=== PATIENT | male | born 1960 | race Two or more races ===

== ENCOUNTER 2023-05-29 23:00 | Inpatient (IN) | payer MEDICAID, OTHER ==
[~2023-05-29] VITALS: Ht 188 cm; Wt 121.0 kg
[2023-05-29] MEDS ORDERED: ALBUTEROL MEDNEB 2.5 mg/3ml NEB NEB ONE (23:15)
[2023-05-29] MEDS ORDERED: IPRATROPIUM BROM 0.5 MG/2.5ML INH SOL NEB ONE (23:15)
[2023-05-29 23:28] LABS: Basophils # (auto) 0.1 10 ^3/uL (0-0.2); Basophils % (auto) 0.8 % (0.0-2.0); Eosinophils # (auto) 0.4 10 ^3/uL (0-0.8); Eosinophils % (auto) 4.5 % (0.0-7.0); Hematocrit 49.1 % (41.0-53.0); Hemoglobin 16.7 g/dL (13.5-17.5); Lymphocytes # (auto) 1.7 10 ^3/uL (0.4-5.4); Lymphocytes % (auto) 20.2 % (10.0-50.0); Mean Corpuscular Hemoglobin 32.8 pg (28.0-32.0); Mean Corpuscular Hgb Conc. 33.9 g/dL (32.0-36.0); Mean Corpuscular Volume 96.7 fL (80.0-100.0); Monocytes # (auto) 0.8 10 ^3/uL (0-1.3); Monocytes % (auto) 9.4 % (0.0-12.0); Neutrophils # (auto) 5.5 10 ^3/uL (1.6-8.6); Neutrophils % (auto) 65.1 % (37.0-80.0); Red Blood Cells 5.08 10^6/uL (4.5-5.90); Red Cell Distribution Width 13.3 % (11.8-14.3); White Blood Cell 8.4 10^3/uL (4.4-10.8)
[2023-05-29 23:41] LABS: Alanine Aminotransferase 42 U/L (7-40); Albumin 4.5 g/dL (3.2-4.8); Alkaline Phosphatase 72 U/L (46-116); Anion Gap 6 (5-15); Aspartate Aminotransferase 22 U/L (13-40); BUN/Creatinine Ratio 9.3 (10.0-20.0); Bilirubin, Total 0.8 mg/dL (0.2-1.0); Blood Urea Nitrogen 8 mg/dL (9-23); Calcium 8.9 mg/dL (8.7-10.4); Carbon Dioxide 30 mmol/L (20-30); Chloride 100 mmol/L (98-107); Glucose 112 mg/dL (74-106); INR 1.05 (0.9-1.15); Magnesium 2.2 mg/dL (1.6-2.6); Partial Thromboplastin Time 25.9 SEC (24.5-34.5); Potassium 3.8 mmol/L (3.5-5.1); Sodium 136 mmol/L (136-145); Total Protein 7.3 g/dL (5.7-8.2)
[2023-05-30] VITALS (7 sets, daily range): BP systolic 147; BP diastolic 89; PULSE 84–91; RESP 14–20; TEMP 97.9; O2SAT 90–97
[2023-05-30] MEDS ORDERED: HYDROcodone-ACET 5/325MG TAB PO ONE
[2023-05-30] MEDS ORDERED: NITROGLYCERIN 2% OINT 1GM PKG TD STA (01:55)
[2023-05-30] MEDS ORDERED: methylPREDNISolone SOD SUCC 125 MG/2 ML VL IV ONE (02:00)
[2023-05-30] MEDS ORDERED: FUROSEMIDE 20 MG/2 ML VIAL IV ONE (02:00)
[2023-05-30] MEDS ORDERED: ALBUTEROL MEDNEB 2.5 mg/3ml NEB NEB ONE (02:00)
[2023-05-30] MEDS ORDERED: ASPirin 81 mg TAB PO ONE ×2 (02:00)
[2023-05-30] MEDS ORDERED: IPRATROPIUM BROM 0.5 MG/2.5ML INH SOL NEB ONE (02:00)
[2023-05-30] MEDS ORDERED: MORPHINE SULFATE INJ 2 MG/ml SYRG IV PRN ×2 (05:15)
[2023-05-30] MEDS ORDERED: DOCUSATE SOD 100 MG CAP PO PRN (05:15)
[2023-05-30] MEDS ORDERED: ACETAMINOPHEN 325 MG TAB PO PRN (05:15)
[2023-05-30] MEDS ORDERED: NITROGLYCERIN 0.4 MG SL TAB SL PRN (05:15)
[2023-05-30] MEDS ORDERED: ONDANSETRON HCL 4 MG/2 ML VIAL IV PRN (05:15)
[2023-05-30] MEDS: SODIUM CHLOR 0.9% PF (SALINE LOCK) 10ML VIAL/SYR IV SCH ×3 (06:02→22:31)
[2023-05-30 07:59] LABS: Basophils # (auto) 0 10 ^3/uL (0-0.2); Basophils % (auto) 0.4 % (0.0-2.0); Eosinophils # (auto) 0 10 ^3/uL (0-0.8); Eosinophils % (auto) 0.3 % (0.0-7.0); Hematocrit 49.7 % (41.0-53.0); Hemoglobin 16.5 g/dL (13.5-17.5); Lymphocytes # (auto) 0.7 10 ^3/uL (0.4-5.4); Lymphocytes % (auto) 10.7 % (10.0-50.0); Mean Corpuscular Hemoglobin 32.3 pg (28.0-32.0); Mean Corpuscular Hgb Conc. 33.3 g/dL (32.0-36.0); Monocytes # (auto) 0.1 10 ^3/uL (0-1.3); Monocytes % (auto) 0.9 % (0.0-12.0); Neutrophils # (auto) 5.5 10 ^3/uL (1.6-8.6); Neutrophils % (auto) 87.7 % (37.0-80.0); Nucleated Red Blood Cells % 0.1 %; Red Blood Cells 5.12 10^6/uL (4.5-5.90); White Blood Cell 6.2 10^3/uL (4.4-10.8)
[2023-05-30 08:20] LABS: Alanine Aminotransferase 45 U/L (7-40); Albumin 4.6 g/dL (3.2-4.8); Alkaline Phosphatase 69 U/L (46-116); Anion Gap 8 (5-15); Aspartate Aminotransferase 22 U/L (13-40); BUN/Creatinine Ratio 14.4 (10.0-20.0); Blood Urea Nitrogen 15 mg/dL (9-23); Calcium 9.7 mg/dL (8.5-10.1); Carbon Dioxide 29 mmol/L (20-30); Chloride 99 mmol/L (98-107); Glucose 203 mg/dL (74-106); Sodium 136 mmol/L (136-145)
[2023-05-30] MEDS ORDERED: ASPirin 81 mg TAB ONE (08:20)
[2023-05-30 08:21] LABS: Bilirubin, Total 0.8 mg/dL (0.2-1.0); Total Protein 7.2 g/dL (5.7-8.2)
[2023-05-30] MEDS: ASPirin 81 mg TAB PO SCH (08:22)
[2023-05-30] MEDS: HYDROcodone-ACET 5/325MG TAB PO PRN ×3 (08:22→22:31)
[2023-05-30] MEDS: ALBUTEROL MEDNEB 2.5 mg/3ml NEB NEB PRN ×2 (08:52→18:58)
[2023-05-30] MEDS: IPRATROPIUM BROM 0.5 MG/2.5ML INH SOL NEB PRN ×2 (08:52→18:58)
[2023-05-30] MEDS ORDERED: hydrALAZINE HCL 20 MG/ML VL IV PRN (09:45)
[2023-05-30] MEDS: hydroCHLOROthiazide 25 MG TAB PO SCH (16:50)
[2023-05-30] MEDS: ATORVASTATIN 20 MG TAB PO SCH (22:31)
[2023-05-30 23:21] LABS: COVID19 ANTIGEN SOFIA FIA NEGATIVE (NEGATIVE); Rapid Influenza A Negative (Negative); Rapid Influenza B Negative (Negative)
[2023-05-31] VITALS (17 sets, daily range): BP systolic 110–148; BP diastolic 77–98; PULSE 66–95; RESP 18–91; TEMP 36.7; O2SAT 18–99
[2023-05-31] MEDS: IPRATROPIUM BROM 0.5 MG/2.5ML INH SOL NEB PRN (03:05)
[2023-05-31] MEDS: ALBUTEROL MEDNEB 2.5 mg/3ml NEB NEB PRN (03:06)
[2023-05-31] MEDS: SODIUM CHLOR 0.9% PF (SALINE LOCK) 10ML VIAL/SYR IV SCH ×3 (06:29→21:20)
[2023-05-31 06:39] LABS: Basophils # (auto) 0 10 ^3/uL (0-0.2); Basophils % (auto) 0.2 % (0.0-2.0); Eosinophils # (auto) 0 10 ^3/uL (0-0.8); Eosinophils % (auto) 0.1 % (0.0-7.0); Hematocrit 44.9 % (41.0-53.0); Hemoglobin 14.9 g/dL (13.5-17.5); Lymphocytes # (auto) 1.6 10 ^3/uL (0.4-5.4); Lymphocytes % (auto) 9.4 % (10.0-50.0); Mean Corpuscular Hemoglobin 32.4 pg (28.0-32.0); Mean Corpuscular Hgb Conc. 33.1 g/dL (32.0-36.0); Mean Corpuscular Volume 97.7 fL (80.0-100.0); Monocytes # (auto) 1.3 10 ^3/uL (0-1.3); Monocytes % (auto) 7.6 % (0.0-12.0); Neutrophils # (auto) 14.4 10 ^3/uL (1.6-8.6); Neutrophils % (auto) 82.7 % (37.0-80.0); Red Blood Cells 4.59 10^6/uL (4.5-5.90); Red Cell Distribution Width 13.4 % (11.8-14.3); White Blood Cell 17.4 10^3/uL (4.4-10.8)
[2023-05-31 07:17] LABS: Alanine Aminotransferase 29 U/L (7-40); Alkaline Phosphatase 61 U/L (46-116); Anion Gap 4 (5-15); Aspartate Aminotransferase 13 U/L (13-40); BUN/Creatinine Ratio 16.7 (10.0-20.0); Blood Urea Nitrogen 15 mg/dL (9-23); Calcium 8.7 mg/dL (8.7-10.4); Carbon Dioxide 32 mmol/L (20-30); Chloride 100 mmol/L (98-107); Glucose 103 mg/dL (74-106); Potassium 3.6 mmol/L (3.5-5.1); Sodium 136 mmol/L (136-145)
[2023-05-31 07:18] LABS: Total Protein 6.5 g/dL (5.7-8.2)
[2023-05-31] MEDS: ALBUTEROL MEDNEB 2.5 mg/3ml NEB NEB SCH ×3 (07:36→18:30)
[2023-05-31] MEDS: IPRATROPIUM BROM 0.5 MG/2.5ML INH SOL NEB SCH ×3 (07:36→18:30)
[2023-05-31 08:34] LABS: Bilirubin, Total 0.5 mg/dL (0.2-1.0)
[2023-05-31] MEDS: HYDROcodone-ACET 5/325MG TAB PO PRN (09:46)
[2023-05-31] MEDS: ASPirin 81 mg TAB PO SCH (09:46)
[2023-05-31] MEDS: hydroCHLOROthiazide 25 MG TAB PO SCH (09:53)
[2023-05-31] MEDS ORDERED: AZITHROMYCIN 500MG/ 250ML 250 ML IV ONE (11:15)
[2023-05-31] MEDS ORDERED: methylPREDNISolone SOD SUCC 125 MG/2 ML VL IM ONE (11:15)
[2023-05-31] MEDS ORDERED: cefTRIAXone 1GM/50ML D5W 50 ML IV ONE (11:15)
[2023-05-31] MEDS: methylPREDNISolone SOD SUCC 125 MG/2 ML VL IV SCH ×3 (12:46→21:20)
[2023-05-31] MEDS: ATORVASTATIN 20 MG TAB PO SCH (21:19)
[2023-05-31] MEDS ORDERED: TEMAZEPAM 15 MG CAP PO ONE (23:15)
[2023-06-01] VITALS (9 sets, daily range): BP systolic 164–165; BP diastolic 99–115; PULSE 83–98; RESP 19–24; TEMP 36.4; O2SAT 92–98
[2023-06-01] MEDS: ALBUTEROL MEDNEB 2.5 mg/3ml NEB NEB SCH ×3 (00:30→11:58)
[2023-06-01] MEDS: IPRATROPIUM BROM 0.5 MG/2.5ML INH SOL NEB SCH ×3 (00:30→11:58)
[2023-06-01] MEDS: methylPREDNISolone SOD SUCC 125 MG/2 ML VL IV SCH ×2 (05:43→13:49)
[2023-06-01] MEDS: SODIUM CHLOR 0.9% PF (SALINE LOCK) 10ML VIAL/SYR IV SCH ×2 (05:44→13:49)
[2023-06-01] MEDS: HYDROcodone-ACET 5/325MG TAB PO PRN (05:49)
[2023-06-01] MEDS: ASPirin 81 mg TAB PO SCH (08:20)
[2023-06-01] MEDS: hydroCHLOROthiazide 25 MG TAB PO SCH (08:21)
[2023-06-01] MEDS ORDERED: cefTRIAXone 1GM/50ML D5W 50 ML IV SCH (09:00)
[2023-06-01] MEDS ORDERED: AZITHROMYCIN 500MG/ 250ML 250 ML IV SCH (10:00)
[2023-06-01] MEDS ORDERED: CAR125T PO (11:31)
[2023-06-01] MEDS ORDERED: AMLO1TAB23 PO (11:31)
[2023-06-01] MEDS ORDERED: HYDR25TA4 PO (11:31)
[2023-06-01] MEDS ORDERED: ATO40T PO (11:31)
[2023-06-01] MEDS ORDERED: AZIT500T66 PO (11:31)
[2023-06-01] MEDS ORDERED: ALBUAER3 IN (11:31)
[2023-06-01] MEDS ORDERED: METH4PAK PO (11:31)
[2023-06-01 12:16] LABS: Base Excess 5.9 mmol/L (-2.0-2.0)
== END 2023-06-01 13:52 | disposition home or self-care (01) | DRG 140 ==
LOC: ER 23:00 → TELE 05-30 05:04 → TELE-WESTW 05-30 23:48
PROVIDERS: ADMIT Nurse Practitioner Family; ATTEND Family Medicine
DX: J44.1 Chronic obstructive pulmonary disease with (acute) exacerbation (principal); J96.01 Acute respiratory failure with hypoxia; I21.A1 Myocardial infarction type 2; I11.0 Hypertensive heart disease with heart failure; Z20.822 Contact with and (suspected) exposure to COVID-19; E66.9 Obesity, unspecified; Z68.34 Body mass index [BMI] 34.0-34.9, adult; F10.10 Alcohol abuse, uncomplicated; F17.200 Nicotine dependence, unspecified, uncomplicated; Z91.199 Patient's noncompliance with other medical treatment and regimen due to unspecified reason; Z71.41 Alcohol abuse counseling and surveillance of alcoholic; Z71.6 Tobacco abuse counseling; I50.32 Chronic diastolic (congestive) heart failure
CPT/HCPCS: 36415; 36600; 80053; 82805; 83735; 83880; 84484; 85025; 85379; 85610; 85730; 87426; 87804; 93005; 93306; 94640; G0378; J0696

== ENCOUNTER 2023-07-20 02:01 | Inpatient (IN) | payer SELFPAY ==
[2023-07-20] VITALS (10 sets, daily range): BP systolic 131; BP diastolic 78; PULSE 24–86; RESP 16–24; TEMP 99.9; O2SAT 92–100
[~2023-07-20] VITALS: Ht 188 cm; Wt 120.8 kg
[~2023-07-20 02:01] MED LIST: ALBUAER3 IN; AMLO1TAB23 PO; ATO40T PO; AZIT500T66 PO; CAR125T PO; HYDR25TA4 PO; METH4PAK PO
[2023-07-20] MEDS ORDERED: FUROSEMIDE 40 MG/4 ML VIAL IV ONE (02:15)
[2023-07-20] MEDS ORDERED: NITROGLYCERIN 2% OINT 1GM PKG TD ONE (02:15)
[2023-07-20] MEDS ORDERED: AZITHROMYCIN 500MG/ 250ML 250 ML IV ONE (02:15)
[2023-07-20] MEDS ORDERED: ALBUTEROL SULF 2.5 MG/0.5ML(0.5%) NEB SOLN NEB ONE (02:15)
[2023-07-20] MEDS ORDERED: cefTRIAXone 1GM/50ML D5W 50 ML IV ONE (02:15)
[2023-07-20] MEDS ORDERED: methylPREDNISolone SOD SUCC 125 MG/2 ML VL IV ONE (02:15)
[2023-07-20] MEDS ORDERED: hydrALAZINE HCL 20 MG/ML VL IV ONE (02:15)
[2023-07-20 02:37] LABS: Basophils # (auto) 0 10 ^3/uL (0-0.2); Basophils % (auto) 0.8 % (0.0-2.0); Eosinophils # (auto) 0.1 10 ^3/uL (0-0.8); Eosinophils % (auto) 1.4 % (0.0-7.0); Hematocrit 51.2 % (41.0-53.0); Hemoglobin 16.9 g/dL (13.5-17.5); Lymphocytes # (auto) 0.3 10 ^3/uL (0.4-5.4); Lymphocytes % (auto) 5.3 % (10.0-50.0); Mean Corpuscular Hgb Conc. 33.1 g/dL (32.0-36.0); Mean Corpuscular Volume 96.8 fL (80.0-100.0); Monocytes # (auto) 0.7 10 ^3/uL (0-1.3); Monocytes % (auto) 11.3 % (0.0-12.0); Neutrophils # (auto) 5.1 10 ^3/uL (1.6-8.6); Neutrophils % (auto) 81.2 % (37.0-80.0); Nucleated Red Blood Cells % 0.1 %; Red Blood Cells 5.29 10^6/uL (4.5-5.90); Red Cell Distribution Width 13.8 % (11.8-14.3); White Blood Cell 6.3 10^3/uL (4.4-10.8)
[2023-07-20 02:49] LABS: INR 1.05 (0.9-1.15); Partial Thromboplastin Time 26.6 SEC (24.5-34.5)
[2023-07-20 02:55] LABS: Albumin 4.7 g/dL (3.2-4.8); Alkaline Phosphatase 71 U/L (46-116); Anion Gap 6 (5-15); Aspartate Aminotransferase 22 U/L (13-40); BUN/Creatinine Ratio 8.4 (10.0-20.0); Blood Urea Nitrogen 7 mg/dL (9-23); Calcium 9.2 mg/dL (8.7-10.4); Carbon Dioxide 27 mmol/L (20-30); Chloride 101 mmol/L (98-107); Glucose 117 mg/dL (74-106); Potassium 3.8 mmol/L (3.5-5.1); Sodium 134 mmol/L (136-145)
[2023-07-20 02:56] LABS: Bilirubin, Total 1.1 mg/dL (0.2-1.0); Total Protein 7.7 g/dL (5.7-8.2)
[2023-07-20 03:29] LABS: Urine Epithelial Cast None Seen /hpf (<5)
[2023-07-20 03:44] LABS: Alanine Aminotransferase 41 U/L (7-40)
[2023-07-20 03:45] LABS: Urine Bacteria NONE SEEN /hpf (None Seen); Urine Blood Negative /uL (Negative); Urine Clarity Clear (Clear); Urine Color Colorless (Yellow); Urine Mucus FEW (None Seen); Urine Protein, UAD Negative (Negative); Urine Urobilinogen Normal (Negative); Urine WBC <1 /hpf (0 - 3)
[2023-07-20 03:49] LABS: Rapid Influenza A Negative (Negative); Rapid Influenza B Negative (Negative)
[2023-07-20 03:50] LABS: COVID19 ANTIGEN SOFIA FIA NEGATIVE (NEGATIVE)
[2023-07-20] MEDS ORDERED: ASPirin 325 MG TAB PO ONE (04:30)
[2023-07-20] MEDS ORDERED: ALBUTEROL SULF 2.5 MG/0.5ML(0.5%) NEB SOLN NEB PRN (05:00)
[2023-07-20] MEDS ORDERED: IPRATROPIUM BROM 0.5 MG/2.5ML INH SOL NEB PRN (05:00)
[2023-07-20] MEDS ORDERED: FUROSEMIDE 40 MG/4 ML VIAL IV SCH (10:00)
[2023-07-20] MEDS: ENOXAPARIN SOD 40 MG/0.4 ML SYRINGE SC SCH (10:43)
[2023-07-20] MEDS ORDERED: PANTOPRAZOLE 40 MG TAB PO ONE (12:45)
[2023-07-20] MEDS ORDERED: ACETAMINOPHEN 325 MG TAB PO PRN (13:00)
[2023-07-20 14:22] LABS: Triglycerides 79 mg/dL (< 150)
[2023-07-20 14:23] LABS: LDL Cholesterol 56 mg/dL (< 100)
[2023-07-20 14:24] LABS: Cholesterol 112 mg/dL (< 200); HDL Cholesterol 41 mg/dL (40-59)
[2023-07-20] MEDS: HYDROcodone-ACET 5/325MG TAB PO PRN (19:00)
[2023-07-20] MEDS: ALBUTEROL SULF 2.5 MG/0.5ML(0.5%) NEB SOLN NEB SCH (22:27)
[2023-07-20] MEDS: IPRATROPIUM BROM 0.5 MG/2.5ML INH SOL NEB SCH (22:27)
[2023-07-21] VITALS (18 sets, daily range): BP systolic 124–147; BP diastolic 79–96; PULSE 60–105; RESP 17–22; TEMP 97–98.8; O2SAT 92–99
[2023-07-21] MEDS: IPRATROPIUM BROM 0.5 MG/2.5ML INH SOL NEB SCH ×6 (02:09→22:35)
[2023-07-21] MEDS: ALBUTEROL SULF 2.5 MG/0.5ML(0.5%) NEB SOLN NEB SCH ×6 (02:09→22:35)
[2023-07-21] MEDS: methylPREDNISolone SOD SUCC 125 MG/2 ML VL IV SCH (03:02)
[2023-07-21] MEDS: cefTRIAXone 1GM/50ML D5W 50 ML IV SCH (03:02)
[2023-07-21] MEDS: AZITHROMYCIN 500MG/ 250ML 250 ML IV SCH (04:43)
[2023-07-21 06:18] LABS: Basophils # (auto) 0 10 ^3/uL (0-0.2); Eosinophils # (auto) 0 10 ^3/uL (0-0.8); Hematocrit 45.5 % (41.0-53.0); Hemoglobin 14.9 g/dL (13.5-17.5); Lymphocytes # (auto) 0.6 10 ^3/uL (0.4-5.4); Lymphocytes % (auto) 7.2 % (10.0-50.0); Mean Corpuscular Hemoglobin 31.9 pg (28.0-32.0); Mean Corpuscular Hgb Conc. 32.8 g/dL (32.0-36.0); Mean Corpuscular Volume 97.1 fL (80.0-100.0); Monocytes # (auto) 0.3 10 ^3/uL (0-1.3); Monocytes % (auto) 3.8 % (0.0-12.0); Nucleated Red Blood Cells % 0.1 %; Red Blood Cells 4.68 10^6/uL (4.5-5.90); Red Cell Distribution Width 13.8 % (11.8-14.3)
[2023-07-21 06:33] LABS: Anion Gap 5 (5-15); Carbon Dioxide 30 mmol/L (20-30); Chloride 101 mmol/L (98-107); Sodium 136 mmol/L (136-145)
[2023-07-21 06:34] LABS: Calcium 8.6 mg/dL (8.5-10.1)
[2023-07-21 06:39] LABS: BUN/Creatinine Ratio 13.7 (10.0-20.0); Blood Urea Nitrogen 13 mg/dL (9-23); Glucose 195 mg/dL (74-106)
[2023-07-21] MEDS: ASPirin 81 mg TAB PO SCH (09:17)
[2023-07-21] MEDS: PANTOPRAZOLE 40 MG TAB PO SCH (09:19)
[2023-07-21] MEDS: amLODIPine BESYLATE 5 MG TAB PO SCH (09:19)
[2023-07-21] MEDS: ENOXAPARIN SOD 40 MG/0.4 ML SYRINGE SC SCH (09:20)
[2023-07-22] VITALS (18 sets, daily range): BP systolic 121–143; BP diastolic 66–78; PULSE 73–102; RESP 17–22; TEMP 98–98.9; O2SAT 92–100
[2023-07-22] MEDS: IPRATROPIUM BROM 0.5 MG/2.5ML INH SOL NEB SCH ×6 (02:01→22:14)
[2023-07-22] MEDS: ALBUTEROL SULF 2.5 MG/0.5ML(0.5%) NEB SOLN NEB SCH ×6 (02:01→22:14)
[2023-07-22] MEDS: cefTRIAXone 1GM/50ML D5W 50 ML IV SCH (02:36)
[2023-07-22] MEDS: methylPREDNISolone SOD SUCC 125 MG/2 ML VL IV SCH (03:22)
[2023-07-22] MEDS: AZITHROMYCIN 500MG/ 250ML 250 ML IV SCH (03:34)
[2023-07-22] MEDS: HYDROcodone-ACET 5/325MG TAB PO PRN ×2 (05:29→22:31)
[2023-07-22] MEDS: ENOXAPARIN SOD 40 MG/0.4 ML SYRINGE SC SCH (10:19)
[2023-07-22] MEDS: ASPirin 81 mg TAB PO SCH (10:19)
[2023-07-22] MEDS: amLODIPine BESYLATE 5 MG TAB PO SCH (10:20)
[2023-07-22] MEDS: PANTOPRAZOLE 40 MG TAB PO SCH (10:20)
[2023-07-23] VITALS (16 sets, daily range): BP systolic 122–155; BP diastolic 59–88; PULSE 67–99; RESP 16–20; TEMP 97.7–98.6; O2SAT 90–98
[2023-07-23] MEDS: IPRATROPIUM BROM 0.5 MG/2.5ML INH SOL NEB SCH ×6 (02:00→22:00)
[2023-07-23] MEDS: ALBUTEROL SULF 2.5 MG/0.5ML(0.5%) NEB SOLN NEB SCH ×6 (02:00→22:00)
[2023-07-23] MEDS: cefTRIAXone 1GM/50ML D5W 50 ML IV SCH (02:30)
[2023-07-23] MEDS: methylPREDNISolone SOD SUCC 125 MG/2 ML VL IV SCH (03:09)
[2023-07-23] MEDS: HYDROcodone-ACET 5/325MG TAB PO PRN ×2 (06:40→17:50)
[2023-07-23] MEDS: ENOXAPARIN SOD 40 MG/0.4 ML SYRINGE SC SCH (08:59)
[2023-07-23] MEDS: AZITHROMYCIN 250 MG TAB PO SCH (09:00)
[2023-07-23] MEDS: PANTOPRAZOLE 40 MG TAB PO SCH (09:07)
[2023-07-23] MEDS: amLODIPine BESYLATE 5 MG TAB PO SCH (09:08)
[2023-07-23] MEDS: ASPirin 81 mg TAB PO SCH (09:08)
[2023-07-23] MEDS ORDERED: ATOR-47 PO (14:30)
[2023-07-24] VITALS (10 sets, daily range): BP systolic 142–163; BP diastolic 85–91; PULSE 81–109; RESP 18–21; TEMP 36.8; O2SAT 94–97
[2023-07-24] MEDS: ALBUTEROL SULF 2.5 MG/0.5ML(0.5%) NEB SOLN NEB SCH ×3 (01:40→10:49)
[2023-07-24] MEDS: IPRATROPIUM BROM 0.5 MG/2.5ML INH SOL NEB SCH ×3 (01:40→10:50)
[2023-07-24] MEDS: methylPREDNISolone SOD SUCC 125 MG/2 ML VL IV SCH (03:12)
[2023-07-24] MEDS: cefTRIAXone 1GM/50ML D5W 50 ML IV SCH (03:12)
[2023-07-24] MEDS ORDERED: hydrALAZINE HCL 20 MG/ML VL IV PRN (05:15)
[2023-07-24] MEDS ORDERED: METH4PAK PO (09:16)
[2023-07-24] MEDS ORDERED: METO25TA93 PO (09:16)
[2023-07-24] MEDS ORDERED: ATOR-47 PO (09:16)
[2023-07-24] MEDS ORDERED: ALBUAER3 IN (09:16)
[2023-07-24] MEDS ORDERED: HYDR25TA5 PO (09:16)
[2023-07-24] MEDS ORDERED: AMLO1TAB23 PO (09:16)
[2023-07-24] MEDS ORDERED: ASPI1TAB20 PO (09:21)
[2023-07-24] MEDS: ASPirin 81 mg TAB PO SCH (10:16)
[2023-07-24] MEDS: PANTOPRAZOLE 40 MG TAB PO SCH (10:16)
[2023-07-24] MEDS: ENOXAPARIN SOD 40 MG/0.4 ML SYRINGE SC SCH (10:16)
[2023-07-24] MEDS: amLODIPine BESYLATE 5 MG TAB PO SCH (10:17)
[2023-07-24] MEDS: AZITHROMYCIN 250 MG TAB PO SCH (10:17)
== END 2023-07-24 14:30 | disposition home or self-care (01) | DRG 189 ==
LOC: ER 02:01 → OVERFLOW 04:58 → TELE-CENTR 22:56
PROVIDERS: ADMIT Hospitalist; ATTEND Internal Medicine Geriatric Medicine
DX: J96.21 Acute and chronic respiratory failure with hypoxia (principal); I21.A1 Myocardial infarction type 2; J44.1 Chronic obstructive pulmonary disease with (acute) exacerbation; I11.0 Hypertensive heart disease with heart failure; I25.10 Atherosclerotic heart disease of native coronary artery without angina pectoris; E66.01 Morbid (severe) obesity due to excess calories; I50.9 Heart failure, unspecified; F17.210 Nicotine dependence, cigarettes, uncomplicated; Z20.822 Contact with and (suspected) exposure to COVID-19; Z68.34 Body mass index [BMI] 34.0-34.9, adult; Z59.7 Insufficient social insurance and welfare support; Z82.3 Family history of stroke; Z82.49 Family history of ischemic heart disease and other diseases of the circulatory system
CPT/HCPCS: 36415; 71045; 80048; 80053; 80061; 81001; 83036; 83605; 83880; 84443; 84484; 85025; 85379; 85610; 85730; 87040; 87426; 87804; 93005; 93306; 94640; G0378

== ENCOUNTER 2023-10-31 18:32 | Emergency (ER) | payer MEDICAID ==
[~2023-10-31] VITALS: Ht 190.5 cm; Wt 123.6 kg
[~2023-10-31 18:32] MED LIST changes: +ASPI1TAB20 PO; -ATO40T PO; +ATOR-47 PO; -AZIT500T66 PO; -CAR125T PO; +HYDR25TA5 PO; +METO25TA93 PO
[2023-10-31] MEDS: IPRATROPIUM BROM 0.5 MG/2.5ML INH SOL NEB ONE ×2 (19:15→22:08)
[2023-10-31] MEDS: ALBUTEROL SULF 2.5 MG/0.5ML(0.5%) NEB SOLN NEB ONE ×2 (19:15→22:08)
[2023-10-31 19:18] LABS: Base Excess 2.3 mmol/L (-2.0-2.0)
[2023-10-31 19:33] LABS: Basophils # (auto) 0.1 10 ^3/uL (0-0.2); Basophils % (auto) 1.1 % (0.0-2.0); Eosinophils # (auto) 0.5 10 ^3/uL (0-0.8); Eosinophils % (auto) 6.1 % (0.0-7.0); Hematocrit 50.9 % (41.0-53.0); Hemoglobin 16.9 g/dL (13.5-17.5); Lymphocytes # (auto) 1.8 10 ^3/uL (0.4-5.4); Lymphocytes % (auto) 20.7 % (10.0-50.0); Mean Corpuscular Hemoglobin 31.5 pg (28.0-32.0); Mean Corpuscular Hgb Conc. 33.2 g/dL (32.0-36.0); Mean Corpuscular Volume 94.9 fL (80.0-100.0); Monocytes # (auto) 0.7 10 ^3/uL (0-1.3); Monocytes % (auto) 7.8 % (0.0-12.0); Neutrophils # (auto) 5.6 10 ^3/uL (1.6-8.6); Neutrophils % (auto) 64.3 % (37.0-80.0); Nucleated Red Blood Cells % 0.1 %; Red Blood Cells 5.36 10^6/uL (4.5-5.90); Red Cell Distribution Width 13.3 % (11.8-14.3); White Blood Cell 8.7 10^3/uL (4.4-10.8)
[2023-10-31 19:46] LABS: Chloride 102 mmol/L (98-107); Potassium 3.9 mmol/L (3.5-5.1); Sodium 138 mmol/L (136-145)
[2023-10-31 19:47] LABS: Anion Gap 6 (5-15); Carbon Dioxide 30 mmol/L (20-30)
[2023-10-31 19:48] LABS: Calcium 9.7 mg/dL (8.7-10.4)
[2023-10-31 19:52] LABS: BUN/Creatinine Ratio 13.4 (10.0-20.0); Blood Urea Nitrogen 11 mg/dL (9-23); Glucose 103 mg/dL (74-106)
[2023-10-31] MEDS: HYDROcodone-ACET 5/325MG TAB PO ONE (20:00)
[2023-10-31] MEDS: hydrALAZINE HCL 20 MG/ML VL IV ONE (20:44)
[2023-10-31] MEDS: methylPREDNISolone SOD SUCC 125 MG/2 ML VL IV ONE (20:44)
[2023-10-31] MEDS ORDERED: ALBU108A5 IN (22:29)
[2023-10-31] MEDS ORDERED: PRED20TA2 PO (22:29)
[2023-10-31 22:43] VITALS: BP 141/92; TEMP 98.3; O2SAT 96
[2023-10-31 22:44] VITALS: PULSE 78; RESP 17
== END 2023-10-31 22:47 | disposition left against medical advice (07) ==
LOC: ER 18:32
DX: J44.1 Chronic obstructive pulmonary disease with (acute) exacerbation (principal); I21.4 Non-ST elevation (NSTEMI) myocardial infarction; I11.0 Hypertensive heart disease with heart failure; I50.9 Heart failure, unspecified; I25.2 Old myocardial infarction
CPT/HCPCS: 36415; 36600; 71045; 80048; 82805; 83880; 84484; 85025; 93005; 94640; 96374; 96375; 99285; J0360; J2930; J7644

== ENCOUNTER 2023-11-12 17:29 | Inpatient (IN) | payer MEDICAID ==
[~2023-11-12] VITALS: Ht 188 cm; Wt 120.4 kg
[~2023-11-12 17:29] MED LIST changes: +ALBU108A5 IN; +PRED20TA2 PO
[2023-11-12 17:50] LABS: Urine Bacteria None Seen /hpf (None Seen)
[2023-11-12 17:55] VITALS: PULSE 89; RESP 18; O2SAT 94
[2023-11-12 18:04] LABS: Basophils # (auto) 0.1 10 ^3/uL (0-0.2); Basophils % (auto) 0.6 % (0.0-2.0); Eosinophils # (auto) 0.5 10 ^3/uL (0-0.8); Eosinophils % (auto) 4.7 % (0.0-7.0); Hematocrit 46.7 % (41.0-53.0); Hemoglobin 15.4 g/dL (13.5-17.5); Lymphocytes # (auto) 2.5 10 ^3/uL (0.4-5.4); Lymphocytes % (auto) 23.2 % (10.0-50.0); Mean Corpuscular Hemoglobin 31.4 pg (28.0-32.0); Mean Corpuscular Hgb Conc. 32.9 g/dL (32.0-36.0); Mean Corpuscular Volume 95.4 fL (80.0-100.0); Monocytes # (auto) 0.9 10 ^3/uL (0-1.3); Monocytes % (auto) 8.6 % (0.0-12.0); Neutrophils # (auto) 6.8 10 ^3/uL (1.6-8.6); Neutrophils % (auto) 62.9 % (37.0-80.0); Red Cell Distribution Width 13.5 % (11.8-14.3); White Blood Cell 10.8 10^3/uL (4.4-10.8)
[2023-11-12] MEDS: SODIUM CHLORIDE 0.9% 1,000 ML IV ONE (18:05)
[2023-11-12] MEDS: ONDANSETRON HCL 4 MG/2 ML VIAL IV ONE (18:06)
[2023-11-12] MEDS: MORPHINE SULFATE INJ 2 MG/ml SYRG IV ONE (18:06)
[2023-11-12] MEDS: NITROGLYCERIN 0.4 MG SL TAB SL ONE (18:07)
[2023-11-12 18:12] LABS: Urine Blood Negative /uL (Negative); Urine Clarity Clear (Clear); Urine Color Light-Yellow (Yellow); Urine Mucus FEW (None Seen); Urine Protein, UAD TRACE (Negative); Urine Specific Gravity 1.018 (1.001-1.035); Urine Urobilinogen Normal (Negative); Urine WBC <1 /hpf (0 - 3); Urine pH 5.5 (5.0-9.0)
[2023-11-12] MEDS: IPRATROPIUM BROM 0.5 MG/2.5ML INH SOL NEB ONE (18:14)
[2023-11-12] MEDS: ALBUTEROL SULF 2.5 MG/0.5ML(0.5%) NEB SOLN NEB ONE (18:14)
[2023-11-12 18:24] LABS: Alanine Aminotransferase 42 U/L (7-40); Albumin 4.2 g/dL (3.2-4.8); Alkaline Phosphatase 84 U/L (46-116); Anion Gap 7 (5-15); Aspartate Aminotransferase 25 U/L (13-40); BUN/Creatinine Ratio 14.2 (10.0-20.0); Blood Urea Nitrogen 15 mg/dL (9-23); Calcium 9.3 mg/dL (8.5-10.1); Carbon Dioxide 28 mmol/L (20-30); Chloride 105 mmol/L (98-107); Glucose 97 mg/dL (74-106); Potassium 3.8 mmol/L (3.5-5.1); Sodium 140 mmol/L (136-145)
[2023-11-12 18:25] LABS: Bilirubin, Total 0.5 mg/dL (0.2-1.0); Total Protein 6.4 g/dL (5.7-8.2)
[2023-11-12 18:30] LABS: INR 0.97 (0.9-1.15); Partial Thromboplastin Time 23.8 SEC (24.5-34.5); Prothrombin Time 10.3 sec (9.3-11.8)
[2023-11-12 19:30] VITALS: PULSE 93; RESP 16; O2SAT 93
[2023-11-12] MEDS: IOHEXOL 350 MG/ML 100ML IJ ONE (20:07)
[2023-11-12] MEDS ORDERED: DOCUSATE SOD 100 MG CAP PO PRN (20:45)
[2023-11-12] MEDS ORDERED: ONDANSETRON HCL 4 MG/2 ML VIAL IV PRN (20:45)
[2023-11-12] MEDS ORDERED: MORPHINE SULFATE INJ 2 MG/ml SYRG IV PRN ×2 (20:45→21:45)
[2023-11-12] MEDS ORDERED: hydrALAZINE HCL 20 MG/ML VL IV PRN (20:45)
[2023-11-12 21:00] VITALS: BP 116/77; PULSE 88; RESP 16; O2SAT 93
[2023-11-12] MEDS ORDERED: NITROGLYCERIN 0.4 MG SL TAB SL PRN (21:45)
[2023-11-12] MEDS: HYDROcodone-ACET 5/325MG TAB PO PRN (21:53)
[2023-11-12] MEDS: SODIUM CHLOR 0.9% PF (SALINE LOCK) 10ML VIAL/SYR IV SCH (21:58)
[2023-11-12] MEDS: ATORVASTATIN 20 MG TAB PO SCH (21:58)
[2023-11-13] VITALS (11 sets, daily range): BP systolic 116–150; BP diastolic 77–97; PULSE 76–95; RESP 16–20; TEMP 97.9–98.9; O2SAT 93–100
[2023-11-13] MEDS: IPRATROPIUM BROM 0.5 MG/2.5ML INH SOL NEB PRN (04:57)
[2023-11-13] MEDS: ALBUTEROL SULF 2.5 MG/0.5ML(0.5%) NEB SOLN NEB PRN (04:57)
[2023-11-13 07:39] LABS: Basophils # (auto) 0 10 ^3/uL (0-0.2); Basophils % (auto) 0.6 % (0.0-2.0); Eosinophils # (auto) 0.4 10 ^3/uL (0-0.8); Eosinophils % (auto) 5.3 % (0.0-7.0); Hematocrit 44.7 % (41.0-53.0); Hemoglobin 14.8 g/dL (13.5-17.5); Lymphocytes # (auto) 1.5 10 ^3/uL (0.4-5.4); Lymphocytes % (auto) 18.6 % (10.0-50.0); Mean Corpuscular Hgb Conc. 33.1 g/dL (32.0-36.0); Mean Corpuscular Volume 96.5 fL (80.0-100.0); Monocytes # (auto) 0.6 10 ^3/uL (0-1.3); Neutrophils # (auto) 5.4 10 ^3/uL (1.6-8.6); Neutrophils % (auto) 67.5 % (37.0-80.0); Red Blood Cells 4.63 10^6/uL (4.5-5.90); Red Cell Distribution Width 13.3 % (11.8-14.3)
[2023-11-13 07:46] LABS: Alanine Aminotransferase 34 U/L (7-40); Albumin 3.7 g/dL (3.2-4.8); Alkaline Phosphatase 70 U/L (46-116); Anion Gap 4 (5-15); BUN/Creatinine Ratio 12.8 (10.0-20.0); Blood Urea Nitrogen 10 mg/dL (9-23); Calcium 8.5 mg/dL (8.5-10.1); Carbon Dioxide 30 mmol/L (20-30); Chloride 106 mmol/L (98-107); Glucose 108 mg/dL (74-106); Potassium 4.2 mmol/L (3.5-5.1); Sodium 140 mmol/L (136-145)
[2023-11-13 07:47] LABS: Aspartate Aminotransferase 22 U/L (13-40); Bilirubin, Total 0.5 mg/dL (0.2-1.0)
[2023-11-13] MEDS: ACETAMINOPHEN 325 MG TAB PO PRN (09:14)
[2023-11-13] MEDS: ASPirin 81 mg TAB PO SCH (09:14)
[2023-11-13] MEDS ORDERED: HYDR25TA4 PO (15:49)
[2023-11-13] MEDS ORDERED: ALBU108A5 IN (15:49)
[2023-11-13] MEDS ORDERED: BUDE1AER16 IN (15:49)
[2023-11-13] MEDS ORDERED: PRED20TA2 PO (15:49)
[2023-11-13] MEDS ORDERED: METO25TA93 PO (15:49)
[2023-11-13] MEDS ORDERED: ATOR-47 PO (15:49)
== END 2023-11-13 18:15 | disposition home or self-care (01) | DRG 140 ==
LOC: ER 17:29 → TELE-WESTW 21:44 → TELE 21:44 → TELE-WESTW 23:41
PROVIDERS: ADMIT Nurse Practitioner Family; ATTEND Nurse Practitioner Acute Care
DX: J44.1 Chronic obstructive pulmonary disease with (acute) exacerbation (principal); J96.01 Acute respiratory failure with hypoxia; I21.A1 Myocardial infarction type 2; I11.0 Hypertensive heart disease with heart failure; I50.9 Heart failure, unspecified; Z68.34 Body mass index [BMI] 34.0-34.9, adult; R07.89 Other chest pain; E66.9 Obesity, unspecified; F17.210 Nicotine dependence, cigarettes, uncomplicated; Z82.3 Family history of stroke; Z82.49 Family history of ischemic heart disease and other diseases of the circulatory system
CPT/HCPCS: 36415; 71045; 71275; 80053; 81001; 83735; 83880; 84484; 85025; 85379; 85610; 85730; 93005; 94640; G0378; J2405

== ENCOUNTER 2024-01-18 08:08 | Emergency (ER) | payer MEDICAID ==
[~2024-01-18] VITALS: Ht 188 cm; Wt 122.2 kg
[~2024-01-18 08:08] MED LIST changes: -AMLO1TAB23 PO; +BUDE1AER16 IN
[2024-01-18] MEDS: HYDROcodone-ACET 10/325MG TAB PO ONE (09:39)
[2024-01-18 10:25] VITALS: BP 157/97
[2024-01-18 11:55] VITALS: PULSE 91; RESP 17; O2SAT 96
[2024-01-18] MEDS ORDERED: IBU600T PO (11:57)
[2024-01-21] MEDS ORDERED: IBUP-1456 PO (13:24)
[2024-01-21] MEDS ORDERED: PRED20TA2 PO (13:24)
== END 2024-01-18 12:00 | disposition home or self-care (01) ==
LOC: ER 08:08
DX: S83.421A Sprain of lateral collateral ligament of right knee, initial encounter (principal); I11.0 Hypertensive heart disease with heart failure; I50.9 Heart failure, unspecified; I25.2 Old myocardial infarction; J44.9 Chronic obstructive pulmonary disease, unspecified; F17.210 Nicotine dependence, cigarettes, uncomplicated; Z79.899 Other long term (current) drug therapy; V89.2XXA Person injured in unspecified motor-vehicle accident, traffic, initial encounter; Y93.89 Activity, other specified; Y92.89 Other specified places as the place of occurrence of the external cause; Y99.8 Other external cause status
CPT/HCPCS: 93971

== ENCOUNTER 2024-02-08 16:41 | Inpatient (IN) | payer OTHER ==
[~2024-02-08] VITALS: Ht 188 cm; Wt 124.2 kg
[~2024-02-08 16:41] MED LIST changes: +IBU600T PO; +IBUP-1456 PO
[2024-02-08 18:09] LABS: Basophils # (auto) 0.1 10 ^3/uL (0-0.2); Basophils % (auto) 0.5 % (0.0-2.0); Eosinophils # (auto) 0.2 10 ^3/uL (0-0.8); Eosinophils % (auto) 1.8 % (0.0-7.0); Hematocrit 45.8 % (41.0-53.0); Hemoglobin 15.7 g/dL (13.5-17.5); Lymphocytes # (auto) 1.9 10 ^3/uL (0.4-5.4); Lymphocytes % (auto) 17.7 % (10.0-50.0); Mean Corpuscular Hemoglobin 33.3 pg (28.0-32.0); Mean Corpuscular Hgb Conc. 34.2 g/dL (32.0-36.0); Mean Corpuscular Volume 97.2 fL (80.0-100.0); Neutrophils # (auto) 7.5 10 ^3/uL (1.6-8.6); Red Blood Cells 4.71 10^6/uL (4.5-5.90); Red Cell Distribution Width 14.6 % (11.8-14.3); White Blood Cell 10.6 10^3/uL (4.4-10.8)
[2024-02-08 18:27] LABS: Alanine Aminotransferase 57 U/L (7-40); Albumin 4.4 g/dL (3.2-4.8); Alkaline Phosphatase 87 U/L (46-116); Anion Gap 8 (5-15); Aspartate Aminotransferase 17 U/L (13-40); BUN/Creatinine Ratio 17.8 (10.0-20.0); Blood Urea Nitrogen 16 mg/dL (9-23); Calcium 9.5 mg/dL (8.7-10.4); Carbon Dioxide 31 mmol/L (20-30); Chloride 104 mmol/L (98-107); Glucose 118 mg/dL (74-106); Potassium 3.2 mmol/L (3.5-5.1); Sodium 143 mmol/L (136-145)
[2024-02-08 18:28] LABS: Bilirubin, Total 0.7 mg/dL (0.2-1.0); Total Protein 6.6 g/dL (5.7-8.2)
[2024-02-08] MEDS: ASPirin 81 mg TAB PO ONE (20:19)
[2024-02-08] MEDS: NITROGLYCERIN 0.4 MG SL TAB SL ONE (20:20)
[2024-02-08 20:29] VITALS: PULSE 87; RESP 22; O2SAT 97
[2024-02-08 21:30] VITALS: PULSE 80; RESP 18; O2SAT 90
[2024-02-09] VITALS (9 sets, daily range): BP systolic 134–144; BP diastolic 85–103; PULSE 80–92; RESP 18–20; TEMP 97.8–98.6; O2SAT 90–95
[2024-02-09] MEDS: POTASSIUM EFFERVESENT TAB 25 MEQ PO ONE (01:18)
[2024-02-09] MEDS: POTASSIUM CHL 20MEQ/100ML 100 ML IV SCH (01:18)
[2024-02-09] MEDS ORDERED: MORPHINE SULFATE INJ 2 MG/ml SYRG IV PRN (03:15)
[2024-02-09] MEDS ORDERED: NITROGLYCERIN 0.4 MG SL TAB SL PRN (03:15)
[2024-02-09 03:28] LABS: Urine Bacteria None Seen /hpf (None Seen)
[2024-02-09 03:52] LABS: Urine Blood Negative /uL (Negative); Urine Clarity Clear (Clear); Urine Color Yellow (Yellow); Urine Protein, UAD TRACE (Negative); Urine Specific Gravity 1.034 (1.001-1.035); Urine Urobilinogen Normal (Negative); Urine WBC 1 /hpf (0 - 3)
[2024-02-09 04:36] LABS: Chloride 106 mmol/L (98-107); Potassium 3.5 mmol/L (3.5-5.1); Sodium 143 mmol/L (136-145)
[2024-02-09 04:37] LABS: Anion Gap 4 (5-15); Calcium 8.6 mg/dL (8.7-10.4); Carbon Dioxide 33 mmol/L (20-30)
[2024-02-09 04:42] LABS: Blood Urea Nitrogen 13 mg/dL (9-23); Glucose 85 mg/dL (74-106)
[2024-02-09] MEDS: ACETAMINOPHEN 325 MG TAB PO PRN (07:39)
[2024-02-09 08:01] LABS: Basophils # (auto) 0 10 ^3/uL (0-0.2); Basophils % (auto) 0.5 % (0.0-2.0); Eosinophils # (auto) 0.3 10 ^3/uL (0-0.8); Eosinophils % (auto) 3.2 % (0.0-7.0); Hematocrit 45.3 % (41.0-53.0); Hemoglobin 15.2 g/dL (13.5-17.5); Lymphocytes % (auto) 22.7 % (10.0-50.0); Mean Corpuscular Hemoglobin 32.9 pg (28.0-32.0); Mean Corpuscular Hgb Conc. 33.6 g/dL (32.0-36.0); Mean Corpuscular Volume 98.1 fL (80.0-100.0); Monocytes # (auto) 0.8 10 ^3/uL (0-1.3); Monocytes % (auto) 8.8 % (0.0-12.0); Neutrophils # (auto) 5.6 10 ^3/uL (1.6-8.6); Neutrophils % (auto) 64.8 % (37.0-80.0); Red Blood Cells 4.62 10^6/uL (4.5-5.90); Red Cell Distribution Width 14.5 % (11.8-14.3); White Blood Cell 8.7 10^3/uL (4.4-10.8)
[2024-02-09] MEDS: FUROSEMIDE 40 MG/4 ML VIAL IV ONE ×2 (09:02→16:29)
[2024-02-09] MEDS: ASPirin 81 mg TAB PO SCH (10:14)
[2024-02-09] MEDS: hydroCHLOROthiazide 25 MG TAB PO SCH (10:15)
[2024-02-09] MEDS: amLODIPine BESYLATE 5 MG TAB PO SCH (10:15)
[2024-02-09] MEDS: METOPROLOL SUCCINATE XL 50 MG TAB PO SCH (10:16)
[2024-02-09 10:26] LABS: COVID19 ANTIGEN SOFIA FIA NEGATIVE (NEGATIVE); Rapid Influenza A Negative (Negative); Rapid Influenza B Negative (Negative)
[2024-02-09] MEDS: ENOXAPARIN SOD 40 MG/0.4 ML SYRINGE SC ONE (11:28)
[2024-02-09 12:05] LABS: Prothrombin Time 10.6 sec (9.3-11.8)
[2024-02-09] MEDS ORDERED: AMLO1TAB23 PO (14:50)
[2024-02-09] MEDS: POTASSIUM EFFERVESENT TAB 25 MEQ GT ONE (16:29)
[2024-02-09 17:38] LABS: Basophils # (auto) 0 10 ^3/uL (0-0.2); Basophils % (auto) 0.4 % (0.0-2.0); Eosinophils # (auto) 0.4 10 ^3/uL (0-0.8); Hematocrit 46.9 % (41.0-53.0); Hemoglobin 15.8 g/dL (13.5-17.5); Lymphocytes # (auto) 1.6 10 ^3/uL (0.4-5.4); Lymphocytes % (auto) 22.7 % (10.0-50.0); Mean Corpuscular Hemoglobin 32.8 pg (28.0-32.0); Mean Corpuscular Hgb Conc. 33.7 g/dL (32.0-36.0); Mean Corpuscular Volume 97.3 fL (80.0-100.0); Monocytes # (auto) 0.6 10 ^3/uL (0-1.3); Neutrophils # (auto) 4.5 10 ^3/uL (1.6-8.6); Neutrophils % (auto) 63.9 % (37.0-80.0); Red Blood Cells 4.82 10^6/uL (4.5-5.90); Red Cell Distribution Width 14.7 % (11.8-14.3)
[2024-02-09 17:47] LABS: Alanine Aminotransferase 52 U/L (7-40); Albumin 4.2 g/dL (3.2-4.8); Alkaline Phosphatase 83 U/L (46-116); Anion Gap 4 (5-15); Aspartate Aminotransferase 18 U/L (13-40); BUN/Creatinine Ratio 9.8 (10.0-20.0); Bilirubin, Total 0.8 mg/dL (0.2-1.0); Blood Urea Nitrogen 10 mg/dL (9-23); Calcium 9.5 mg/dL (8.7-10.4); Carbon Dioxide 36 mmol/L (20-30); Chloride 100 mmol/L (98-107); Glucose 139 mg/dL (74-106); Potassium 3.3 mmol/L (3.5-5.1); Sodium 140 mmol/L (136-145); Total Protein 6.7 g/dL (5.7-8.2)
[2024-02-09] MEDS: IPRATROPIUM BROM 0.5 MG/2.5ML INH SOL NEB PRN (20:19)
[2024-02-09] MEDS: ALBUTEROL SULF 2.5 MG/0.5ML(0.5%) NEB SOLN NEB PRN (20:19)
[2024-02-09 20:34] LABS: Amphetamine Screen, Urine Neg (NEGATIVE); Barbiturate Scree,Urine Neg (NEGATIVE); Benzodiazephine Screen, Urine Neg (NEGATIVE); Cocaine Screen, Urine Neg (NEGATIVE); Opiate Scree,Urine Neg (NEGATIVE); Phencyclidine Screen, Urine Neg (NEGATIVE)
[2024-02-09 20:35] LABS: Cannabinoid Screen, Urine Neg (NEGATIVE)
[2024-02-09] MEDS: ATORVASTATIN 20 MG TAB PO SCH (21:54)
[2024-02-09] MEDS: TEMAZEPAM 15 MG CAP PO PRN (21:55)
[2024-02-10] VITALS (9 sets, daily range): BP systolic 126–154; BP diastolic 79–112; PULSE 75–97; RESP 18–19; TEMP 97.4–98.6; O2SAT 92–96
[2024-02-10 06:41] LABS: Basophils # (auto) 0 10 ^3/uL (0-0.2); Basophils % (auto) 0.6 % (0.0-2.0); Eosinophils # (auto) 0.3 10 ^3/uL (0-0.8); Eosinophils % (auto) 4.5 % (0.0-7.0); Hematocrit 48.9 % (41.0-53.0); Hemoglobin 16.6 g/dL (13.5-17.5); Lymphocytes # (auto) 1.4 10 ^3/uL (0.4-5.4); Lymphocytes % (auto) 20.3 % (10.0-50.0); Mean Corpuscular Hgb Conc. 33.9 g/dL (32.0-36.0); Mean Corpuscular Volume 97.3 fL (80.0-100.0); Monocytes # (auto) 0.5 10 ^3/uL (0-1.3); Monocytes % (auto) 7.6 % (0.0-12.0); Neutrophils # (auto) 4.8 10 ^3/uL (1.6-8.6); Nucleated Red Blood Cells % 0.1 %; Red Blood Cells 5.02 10^6/uL (4.5-5.90); Red Cell Distribution Width 14.3 % (11.8-14.3); White Blood Cell 7.1 10^3/uL (4.4-10.8)
[2024-02-10 07:09] LABS: Alanine Aminotransferase 47 U/L (7-40); Albumin 4.3 g/dL (3.2-4.8); Alkaline Phosphatase 83 U/L (46-116); Anion Gap 5 (5-15); Aspartate Aminotransferase 21 U/L (13-40); BUN/Creatinine Ratio 13.2 (10.0-20.0); Blood Urea Nitrogen 10 mg/dL (9-23); CRP High Sensitivity 0.54 mg/dL (<1.0); Calcium 9.5 mg/dL (8.7-10.4); Carbon Dioxide 35 mmol/L (20-30); Chloride 99 mmol/L (98-107); Glucose 97 mg/dL (74-106); Magnesium 2.1 mg/dL (1.6-2.6); Potassium 3.4 mmol/L (3.5-5.1); Sodium 139 mmol/L (136-145)
[2024-02-10 07:10] LABS: Bilirubin, Total 0.8 mg/dL (0.2-1.0); Total Protein 6.8 g/dL (5.7-8.2)
[2024-02-10] MEDS: POTASSIUM EFFERVESENT TAB 25 MEQ GT SCH (09:20)
[2024-02-10] MEDS: FUROSEMIDE 40 MG/4 ML VIAL IV SCH (09:23)
[2024-02-10] MEDS: ENOXAPARIN SOD 40 MG/0.4 ML SYRINGE SC SCH (09:25)
[2024-02-10] MEDS: POTASSIUM CHL 20 Meq TABLET PO ONE (15:04)
[2024-02-10] MEDS: LISINOPRIL 20 MG TAB PO ONE (15:06)
[2024-02-10] MEDS ORDERED: BUDE1AER4 INH (16:26)
[2024-02-11] VITALS (8 sets, daily range): BP systolic 124–150; BP diastolic 64–102; PULSE 72–96; RESP 17–20; TEMP 37.1; O2SAT 90–96
[2024-02-11] MEDS ORDERED: hydrALAZINE HCL 20 MG/ML VL IV ONE (01:15)
[2024-02-11 06:17] LABS: Basophils # (auto) 0 10 ^3/uL (0-0.2); Basophils % (auto) 0.4 % (0.0-2.0); Eosinophils # (auto) 0.3 10 ^3/uL (0-0.8); Eosinophils % (auto) 4.3 % (0.0-7.0); Hematocrit 47.5 % (41.0-53.0); Lymphocytes # (auto) 1.2 10 ^3/uL (0.4-5.4); Lymphocytes % (auto) 18.9 % (10.0-50.0); Mean Corpuscular Hemoglobin 32.6 pg (28.0-32.0); Mean Corpuscular Hgb Conc. 33.6 g/dL (32.0-36.0); Mean Corpuscular Volume 96.9 fL (80.0-100.0); Monocytes # (auto) 0.6 10 ^3/uL (0-1.3); Monocytes % (auto) 9.8 % (0.0-12.0); Neutrophils # (auto) 4.1 10 ^3/uL (1.6-8.6); Neutrophils % (auto) 66.6 % (37.0-80.0); Nucleated Red Blood Cells % 0.1 %; Red Cell Distribution Width 14.2 % (11.8-14.3); White Blood Cell 6.1 10^3/uL (4.4-10.8)
[2024-02-11 06:41] LABS: Alanine Aminotransferase 41 U/L (7-40); Alkaline Phosphatase 72 U/L (46-116); Anion Gap 6 (5-15); BUN/Creatinine Ratio 17.1 (10.0-20.0); Blood Urea Nitrogen 12 mg/dL (9-23); Calcium 9.2 mg/dL (8.7-10.4); Carbon Dioxide 34 mmol/L (20-30); Chloride 100 mmol/L (98-107); Glucose 96 mg/dL (74-106); Potassium 3.5 mmol/L (3.5-5.1); Sodium 140 mmol/L (136-145)
[2024-02-11 06:42] LABS: Albumin 3.8 g/dL (3.2-4.8); Aspartate Aminotransferase 15 U/L (13-40)
[2024-02-11 06:43] LABS: Bilirubin, Total 0.7 mg/dL (0.2-1.0); Total Protein 6.4 g/dL (5.7-8.2)
[2024-02-11 09:21] LABS: Base Excess 8.7 mmol/L (-2.0-2.0)
[2024-02-11] MEDS: LISINOPRIL 20 MG TAB PO SCH (10:00)
[2024-02-11] MEDS ORDERED: FURO1TAB33 PO (18:17)
[2024-02-11] MEDS ORDERED: POTA-36 PO (18:17)
== END 2024-02-11 18:55 | disposition home or self-care (01) | DRG 280 ==
LOC: ER 16:41 → TELE 02-09 03:18 → TELE-WESTW 02-09 12:21
PROVIDERS: ADMIT Internal Medicine Pulmonary Disease; ATTEND Internal Medicine Pulmonary Disease
DX: I11.0 Hypertensive heart disease with heart failure (principal); I50.21 Acute systolic (congestive) heart failure; I21.A1 Myocardial infarction type 2; J96.21 Acute and chronic respiratory failure with hypoxia; J44.1 Chronic obstructive pulmonary disease with (acute) exacerbation; Z20.822 Contact with and (suspected) exposure to COVID-19; F17.210 Nicotine dependence, cigarettes, uncomplicated; I25.10 Atherosclerotic heart disease of native coronary artery without angina pectoris; E66.01 Morbid (severe) obesity due to excess calories; D35.01 Benign neoplasm of right adrenal gland; E87.6 Hypokalemia; Z98.61 Coronary angioplasty status; Z82.3 Family history of stroke; Z80.9 Family history of malignant neoplasm, unspecified; Z68.35 Body mass index [BMI] 35.0-35.9, adult
CPT/HCPCS: 36415; 36600; 71045; 80048; 80053; 80307; 81001; 82805; 83605; 83690; 83735; 83880; 84443; 84484; 85025; 85379; 85610; 86141; 87081; 87426; 87804; 93005; 93306; 93971; 94640; G0378; J3480